=== PATIENT | female | born 1955 | race Caucasian/White ===

== ENCOUNTER 2018-11-10 10:55 | Outpatient (CLI) | payer MEDICARE ==
--- NOTE | 2018-11-10 11:45 | CT ---
EXAM: CT of the chest with contrast HISTORY: Benign neoplasm of connective tissue; thymoma COMPARISON: 11/15/2016 TECHNIQUE: Multiple contiguous axial images were obtained in a CT the chest with contrast. Coronal an d sagittal reformats were performed. FINDINGS: HEART: Normal in size without focal cardiac abnormality MEDIASTINUM: No hilar or mediastinal lymphadenopathy. No mediastinal mass. LUNGS: No focal infiltrates, nodules, or masses. PLEURAL SPACE: No pneumothorax or pleural effusion. CHEST WALL SOFT TISSUES: Unremarkable OSSEOUS STRUCTURES: Degenerative changes in the spine. VISUALIZED SUBDIAPHRAGMATIC STRUCTURES: The patient has had interval removal of the gastric band with a seroma in the abdominal wall near the fill port site. IMPRESSION: No evidence of recurrent disease.
[2018-11-10] MEDS ORDERED: ISOVUE-370 76%-LOCM 1 ML ONE (12:00)
== END 2018-11-10 10:56 | disposition home or self-care (01) ==
LOC: BICCT 10:55
PROVIDERS: ATTEND Internal Medicine Hematology & Oncology
DX: D21.3 Benign neoplasm of connective and other soft tissue of thorax (principal)
CPT/HCPCS: 71260; 82565; Q9966